=== PATIENT | male | born 1965 | race Caucasian/White ===

== ENCOUNTER → 2020-07-10 15:37 | Outpatient (CLI) | payer OTHER, SELFPAY ==
--- NOTE | 2020-07-10 15:47 | CT_ITS ---
HISTORY: ATYPICAL FACIAL PAIN. RIGHT SIDE WORSE SINCE JANUARY. TECHNIQUE: CT images of the facial bones were obtained without IV contrast. 2D images were reviewed to aid in assessment of the facial bones. A radiation dose optimization technique was used for this scan. COMPARISON: None FINDINGS: Number of images including paperwork: [id number] BONES: No displaced facial bone fracture. No suspicious bone lesion. Degenerative changes of the visualized cervical spine. VISUALIZED PARANASAL SINUSES: No air fluid level. Frontal sinuses are underdeveloped, more so on the left than the right. There is partial opacification of the small right frontal sinus. Partial opacification of bilateral ethmoid air cells. Mild mucosal thickening in the maxillary and sphenoid sinuses, greater on the right than the left. VISUALIZED MASTOID AIR CELLS: Clear. DENTITION: No acute findings. ORBITAL CONTENTS: Unremarkable. SOFT TISSUES: No focal soft tissue swelling. CT/Sinus/Facial Bone IMPRESSION: No acute findings. Chronic appearing paranasal sinus disease. Individualized dose optimization techniques were used for this CT. at 0021 Reported and signed by: Tiffany High MD Electronically Signed: Tiffany High MD at 0:21 EST Tel , Service support ,
== END ==
PROVIDERS: PCP Student in an Organized Health Care Education/Training Program; Referring Provider Otolaryngology; Visit Provider Otolaryngology
DX: G50.1 Atypical facial pain (principal)
CPT/HCPCS: 70486